=== PATIENT | female | born 1990 | race Two or more races ===

== ENCOUNTER 2018-03-01 20:35 | Emergency (ER) | payer MEDICAID ==
[~2018-03-01] VITALS: Ht 170.2 cm; Wt 83.9 kg
[2018-03-01 20:55] VITALS: BP 126/75
[2018-03-01] MEDS ORDERED: IBUPROFEN 800 MG TAB PO ONE ×2 (22:45)
== END 2018-03-01 23:42 | disposition home or self-care (01) ==
LOC: ER 20:47
DX: S82.62XA Displaced fracture of lateral malleolus of left fibula, initial encounter for closed fracture (principal); X50.1XXA Overexertion from prolonged static or awkward postures, initial encounter; Y93.64 Activity, baseball; Y99.8 Other external cause status; Y92.89 Other specified places as the place of occurrence of the external cause
CPT/HCPCS: 29515; 73610